=== PATIENT | male | born 1985 | race Caucasian/White ===

== ENCOUNTER 2017-06-20 03:23 | Inpatient (IN) | payer MEDICAID, OTHER ==
[2017-06-20 03:23] VITALS: BMI 28.1
[2017-06-20 04:38] LABS: RBC URINE < 1 /hpf (0-3); URINE BILIRUBIN NEGATIVE (NEGATIVE); URINE BLOOD NEGATIVE (NEGATIVE); URINE COLOR Yellow (YELLOW); URINE GLUCOSE (UA) NORMAL (Normal); URINE KETONE 2+ mg/dL (NEGATIVE); URINE LEUKOCYTE ESTERASE NEG Leu/uL (Negative); URINE PROTEIN NEGATIVE (NEGATIVE); URINE UROBILINOGEN NORMAL mg/dL (0.2-1.0); WBC URINE 1 /hpf (0-5)
[2017-06-20 04:40] LABS: MEAN PLATELET VOLUME 8.6 fL (7.2-11.7); WHITE BLOOD COUNT 9.3 K/uL (4.8-10.8)
[2017-06-20 04:45] LABS: CHLORIDE 98 mmol/L (98-107); SODIUM 134 mmol/L (132-148)
[2017-06-20 04:46] LABS: POTASSIUM 3.5 mmol/L (3.6-5.2)
[2017-06-20 04:48] LABS: ALB/GLOB RATIO 1.2 (1.0-2.1); ALKALINE PHOSPHATASE 68 U/L (38-126); ALT/SGPT 37 U/L (21-72); AST/SGOT 23 U/L (17-59); BILIRUBIN,TOTAL 1.8 mg/dL (0.2-1.3); BLOOD UREA NITROGEN 19 mg/dL (9-20); CALCIUM 8.7 mg/dl (8.6-10.4); CARBON DIOXIDE 26 mmol/L (22-30); GFR AFRICAN-AMERICAN > 60; GLUCOSE,RANDOM 77 mg/dL (75-110); TOTAL PROTEIN 8.4 g/dL (6.3-8.3)
[2017-06-20 04:49] LABS: ALCOHOL SERUM < 10 mg/dl (0-10); BASO % 0.2 % (0.0-2.0); EOS % 0.1 % (0.0-4.0); HEMATOCRIT 40.8 % (35.0-51.0); LYMPH # 1.6 K/uL (1.0-4.3); LYMPH % 17.2 % (20.0-40.0); MEAN CELL VOLUME 84.3 fL (80.0-94.0); MEAN CORPUSCULAR HEMOGLOBIN 28.6 pg (27.0-31.0); MEAN CORPUSCULAR HGB CONC 33.9 g/dL (33.0-37.0); MONO # 0.7 K/uL (0.0-0.8); MONO % 7.1 % (0.0-10.0); RED CELL DISTRIBUTION WIDTH 14.4 % (11.5-14.5)
--- NOTE | 2017-06-20 04:57 | C.PDOC ---
History Of Present Illness 31 y/o male with h/o of bipolar disorder presents to ER with c/o suicidal ideation- pt states he was thinking on overdosing on pills but did not take any pills. Pt reports being noncompliant to his psychiatric meds. Denies any medical c/o Time Seen by Provider: 06/20/17 03:41 Chief Complaint (Nursing): Psychiatric Evaluation History Per: Patient History/Exam Limitations: no limitations Current Symptoms Are (Timing): Still Present Suicide/Self Injury Attempted (Context): None Modifying Factor(s): Cocaine Associated Symptoms: Suicidal Plan Involuntary Hold By: None Recent travel outside of the [place]: No Past Medical History Vital Signs: Last Vital Signs Temp 97.9 F 06/20/17 03:35 Pulse 91 H 06/20/17 03:35 Resp 18 06/20/17 03:35 BP 144/84 06/20/17 03:35 Pulse Ox 99 06/20/17 03:35 - Medical History PMH: Bipolar Disorder, Depression Denies: Diabetes, Hepatitis, HIV, HTN, Seizures, Sexually Transmitted Disease Surgical History: No Surg Hx - [facility] DETOXIF[facility] SERVICES FOR SUBSTANCE ABUSE TREATMENT (07/25/16) Family History: States: Unknown Family Hx - Social History Hx Alcohol Use: Yes Hx Substance Use: Yes - Immunization History Hx Tetanus Toxoid Vaccination: No Hx Influenza Vaccination: No Hx Pneumococcal Vaccination: No Review Of Systems Except As Marked, All Systems Reviewed And Found Negative. Psych: Positive for: Suicidal ideation Physical Exam - Physical Exam Appears: Well, No Acute Distress Skin: Normal Color, No Other (lesions) Head: Atraumatic Eye(s): bilateral: Normal Inspection, EOMI Neck: Normal, Supple Cardiovascular: Rhythm Regular Respiratory: Normal Breath Sounds, No Wheezing Gastrointestinal/Abdominal: Normal Exam, Soft, No Tenderness Neurological/Psych: Oriented x3, Normal Speech, Normal Cognition Gait: Steady ED Course And Treatment O2 Sat by Pulse Oximetry: 99 Pulse Ox Interpretation: Normal Progress Note: Pt was evaluated by crisis counselor- Nusrat who discussed case with psych organizational development director Dr Diggs who will admit the pt Disposition - Disposition Disposition Time: 04:20 Condition: STABLE Forms: [facility] (Setswana) - Clinical Impression Clinical Impression: Bipolar disorder, Alcohol abuse, Cocaine abuse
[2017-06-20] MEDS ORDERED: Pneumococcal 23-Valent Vaccine IM ONE (05:56)
--- NOTE | 2017-06-20 06:01 | PCM.BM ---
<Beatriz Lange - Last Filed: 06/20/17 06:01> Treatment Plan Problems - Problems identified on initial assessmt Depression Date Initiated: 06/20/17 Time Initiated: 05:30 Assessment reference: NA Status: Active Suicidal Ideation Date Initiated: 06/20/17 Time Initiated: 05:30 Assessment reference: NA Status: Active Treatment assets and liabiliti Patient Assests: cooperative, self-reliant, ADL independent, negotiates basic needs, good interpersonal skills Patient Liabilities: financial problems, poor support system, substance abuse ( Cocaine) - Milieu Protocol Maintain good personal hygiene: daily Encourage regular showers, daily Remind patient to perform daily oral care Conduct patient checks and document Observation sheet: Q15 minutes Maintain personal safety: every shift Educate patient to report safety concerns to staff, every shift Monitor environment for contraband/sharps Medication safety: Monitor for expected outcome, potential side effects: every shift, Assess barriers to learning: every shift, Assess readiness for medication education: every shift <Mary Beth De Leon - Last Filed: 06/21/17 11:21> Family Contact Family involvement: Famliy/SO not involved - Goals for Treatment Patient goals for treatment: "I guess I'll go to rehab." Discharge/Continuing Care - Education Needs Education Needs: Patient Medication, Patient Coping Skills, Patient Placement options, Patient Community resources - Discharge Discharge Criteria: Tolerates medication w/o severe side effects, Free of Suicidal thoughts, No longer exhibiting s/s of withdrawal, Reduction of target symptoms Discharge to:: Substance Abuse Rehab - Treatment Team Participation Discussed with Family/SO: No Was Patient/Family/SO present at Treatment Team Meeting: Yes <Jim Diggs - Last Filed: 06/21/17 11:25> - Diagnosis (1) Major depress dis, severe Status: Acute Interventions: 06/21/17 11:24 * Assess/adjust medications daily and /or as needed * See patient on an individual basis 7x/week to assess level of depressive behaviors and stability * Discuss risks, benefits, side effects and alternatives of medications * (2) Cocaine abuse Status: Acute Interventions: 06/21/17 11:25 * Assess 7x/week regarding severity of withdrawal * Educate regarding risks, benefits, side effects and alternatives of medications * Use Motivational Interviewing for abstinence * Use CBT for relapse prevention * Medication management for withdrawal symptoms * Encourage medication assisted treatment *
--- NOTE | 2017-06-20 10:19 | PCM.PSYCH ---
Initial Psychiatric Evaluation - Initial Psychiatric Evaluation Type of Admission: Voluntary Legal Status: Capacity Chief Complaint (in patient's own words): I was feeling suicidal.' History of Present Illness and Precipitating Events: This is a 31 years old HM, who is currently unemployed. Patient has a long history of depression and came to the hospital with suicidal ideation. Patient reports a long history of abusing cocaine and drinking. Patient reports history of 1 inpatient psychiatric hospitalizations at [facility] 1 year ago. However he denies any follow-up with any psychiatrist. As per the ED note, patient presented to the ED patient saying, "My mind is not right;" I want to kill myself;" I've been using drugs;" I tried to kill myself 2days ago." Pt reports attempting suicide by od on "more than 30" tablets of Xanax, Clonazepam , and Clonidine on June 18, 2017. Pt "woke up throwing up" several hours after making the above suicide attempt, but he did not seek medical attention. As per Pt's medical record, Pt made a similar suicide attempt, on 07/25/16, by od on "100" unknown pills. Pt had been living with his mother until she threw him out sometime last night secondary to Pt stealing from her. Patient reports of increasingly depressed mood, at times feelings of hopelessness and helplessness, poor sleep and poor appetite. He also reports at times irritability, and agitation. Patient reports auditory hallucinations noncommand type. However he denies any visual hallucinations or any persecutory delusions . He reports using $100 worth cocaine yesterday but denies drinking or any other substance abuse. Medical history None reported Past Psychiatric History - Past Psychiatric History Previous Treatment History: Inpatient Pertinent Medical Hx (Current Medical&Sleep Prob, Allergies): Allergies Allergy/AdvReac Type Severity Reaction Status Date / Time No Known Allergies Allergy Verified 06/20/17 03:41 Escitalopram [Lexapro] 10 mg PO DAILY #30 tab 07/30/16 Fluticasone Propionate [Flonase] 1 spr FRANTZ BID #0 bottle 07/30/16 Gabapentin [Neurontin] 300 mg PO TID #90 cap 07/30/16 QUEtiapine [Seroquel] 100 mg PO HS #30 tab 07/30/16 Review of Systems - Review of Systems All systems: reviewed and no additional remarkable complaints except - Psychiatric Psychiatric: Anxiety, Depression, Irritability, Suicidal Ideation Mental Status Examination - Personal Presentation Personal Presentation: Looks stated age - Affect Affect: Constricted, Depressed - Motor Activity Motor Activity: Calm - Reliability in Providing Information Reliability in Providing Information: Good - Speech Speech: Organized - Mood Mood: Depressed, Anxious - Formal Thought Process Formal Thought Process: No Impairment - Obsessions/Compulsions Obsessions: No Compulsions: No - Cognitive Functions Orientation: Person, Place, Situation, Time Sensorium: Alert Attention/Concentration: Attentive Abstract Thinking: [place] Estimate of Intelligence: Below average Judgement: Imparied, as evidence by: Poor judgement, Imparied, as evidence by: Lack of insight into illness - Risk Risk: Suicidal, Diminished functioning - Strength & Assets Inventory Strength & Assets Inventory: Family support DSM 5 DX - DSM 5 DSM 5 Diagnosis: Major depressive disorder recurrent severe with psychotic features Cocaine use disorder severe - Recommended/Plan of Treatment Treatment Recommendations and Plan of Treatment: Major depressive disorder recurrent severe with psychotic features CBT Psychoeducation Supportive therapy and group therapy Lexapro 10 mg daily Neurontin 100 mg by mouth 3 times a day Seroquel 100 mg by mouth daily at bedtime Trazodone 50 mg by mouth daily at bedtime Cocaine use disorder severe CBT Psychoeducation Use [place] for abstinence - Smoking Cessation Smoking Cessation Initiated: No
[2017-06-20] MEDS: Fluticasone Nasal 50 mcg/Spray NAS SCH (17:42)
[2017-06-21] MEDS: Fluticasone Nasal 50 mcg/Spray NAS SCH ×2 (10:29→17:46)
--- NOTE | 2017-06-21 10:44 | PCM.PYCHPN ---
Psychiatric Progress Note - Psychiatric Progress Note Patient Chief Complaint: I was feeling suicidal.' Medication Change: Yes (increase seroquel, increase lexapro) Medical Record Reviewed: Yes Mental Status Examination - Cognitive Function Orientation: Person, Place, Situation, Time - Mood Mood: Depressed, Anxious - Affect Affect: Constricted, Depressed - Formal Thought Process Formal Thought Process: No Impairment - Homicidal Ideation Homicidal Ideation: No Goal/Treatment Plan - Goal/Treatment Plan Progress Toward Problem(s) and Goals/Treatment Plan: Major depressive disorder recurrent severe with psychotic features CBT Psychoeducation Supportive therapy and group therapy Lexapro 10 mg daily Neurontin 100 mg by mouth 3 times a day Seroquel 100 mg by mouth daily at bedtime Trazodone 50 mg by mouth daily at bedtime Cocaine use disorder severe CBT Psychoeducation Use [place] for abstinence
[2017-06-22] MEDS: Fluticasone Nasal 50 mcg/Spray NAS SCH ×2 (09:14→17:31)
--- NOTE | 2017-06-22 10:41 | PCM.PYCHPN ---
Psychiatric Progress Note - Psychiatric Progress Note Patient seen today, length of contact: 16 min Patient Chief Complaint: I was feeling better.' Problems Identified/Issues Discussed: Patient seen and evaluated, chart reviewed and discussed with the nurse. Patient reports improvement in his mood and denies any auditory or visual hallucinations. He still reports some anxiety but denies any feelings of hopelessness and helplessness. He is taking medication and denies any side effects. He needs more time for stabilization. Supportive therapy and psychoeducation were given. Medication Change: Yes (increase seroquel, increase lexapro) Medical Record Reviewed: Yes Mental Status Examination - Cognitive Function Orientation: Person, Place, Situation, Time Memory: Intact Attention: WNL Concentration: Poor Association: WNL Fund of Knowledge: Poor - Mood Mood: Depressed, Anxious - Affect Affect: Constricted - Speech Speech: Soft - Formal Thought Process Formal Thought Process: No Impairment - Suicidal Ideation Suicidal Ideation: No - Homicidal Ideation Homicidal Ideation: No Goal/Treatment Plan - Goal/Treatment Plan Need for Continued Stay: Severe depression anxiety, Severe functional impairment Progress Toward Problem(s) and Goals/Treatment Plan: Major depressive disorder recurrent severe with psychotic features CBT Psychoeducation Supportive therapy and group therapy Lexapro 20 mg daily Neurontin 100 mg by mouth 3 times a day Seroquel 100 mg by mouth daily at bedtime Trazodone 50 mg by mouth daily at bedtime Cocaine use disorder severe CBT Psychoeducation Use [place] for abstinence - Smoking Cessation Smoking Cessation Initiated: No
[2017-06-23 09:27] VITALS: BP 117/75; PULSE 71; RESP 16; TEMP 98.3; O2SAT 98
[2017-06-23] MEDS: Fluticasone Nasal 50 mcg/Spray NAS SCH (09:28)
[2017-06-23] MEDS ORDERED: Influenza Vaccine 60 mcg/0.5 mL SYR (4YR UP) IM ONE (10:00)
--- NOTE | 2017-06-23 12:01 | PCM.PYCHDC ---
Mental Status Examination - Mental Status Examination Orientation: Person, Place, Situation, Time Memory: Intact Mood: Neutral Affect: Constricted Speech: Soft Attention: WNL Concentration: WNL Association: WNL Fund of Knowledge: WNL Formal Thought Process: No Impairment Description of patient's judgement and insight: good, fair Psychotic Thoughts and Behaviors: denies any AVH Suicidal Ideation: No Current Homicidal Ideation?: No Discharge Summary - Discharge Note Reason for Hospitalization: This is a 31 years old HM, who is currently unemployed. Patient has a long history of depression and came to the hospital with suicidal ideation. Patient reports a long history of abusing cocaine and drinking. Patient reports history of 1 inpatient psychiatric hospitalizations at [facility] 1 year ago. However he denies any follow-up with any psychiatrist. As per the ED note, patient presented to the ED patient saying, "My mind is not right;" I want to kill myself;" I've been using drugs;" I tried to kill myself 2days ago." Pt reports attempting suicide by od on "more than 30" tablets of Xanax, Clonazepam , and Clonidine on June 18, 2017. Pt "woke up throwing up" several hours after making the above suicide attempt, but he did not seek medical attention. As per Pt's medical record, Pt made a similar suicide attempt, on 07/25/16, by od on "100" unknown pills. Pt had been living with his mother until she threw him out sometime last night secondary to Pt stealing from her. Patient reports of increasingly depressed mood, at times feelings of hopelessness and helplessness, poor sleep and poor appetite. He also reports at times irritability, and agitation. Patient reports auditory hallucinations noncommand type. However he denies any visual hallucinations or any persecutory delusions . He reports using $100 worth cocaine yesterday but denies drinking or any other substance abuse. Consultations:: List each consultation separately and include: 1. Reason for request. 2. Findings. 3. Follow-up Summary of Hospital Course include:: 1. Description of specific treatment plan utilized for patients during their course of treatmen. 2. Summarize the time- course for resolution of acute symptoms and/or regressed behaviors. 3. Describe issues identified and worked on during hospitalization. 4. Describe medication utilized. 5. Describe medical problems identified and treated. 6. Reassessment of suicide risk Summary of Hospital Course: During the course of his stay, patient (pt) started progressively improving and he no longer remained irritable, depressed, and suicidal. His mood and anxiety were improved and he started attending groups and meetings and started socializing. Patient denied any feelings of hopelessness, helplessness, and worthlessness, denied any problem with the sleep or appetite, denied suicidal ideation or homicidal ideation. Pt denied any auditory or visual hallucinations. Some changes were made in his current medications and patient was discharged on following medications. He tolerated these medications very well and denies any side effects. He was discharged to [facility]. - Diagnosis (1) Major depress dis, severe Status: Acute (2) Cocaine abuse Status: Acute - Final Diagnosis (DSM 5) Condition upon Discharge: STABLE DSM 5: Major depressive disorder recurrent severe with psychotic features Cocaine use disorder severe Disposition: HOME/ ROUTINE Follow-up Treatment Plan: Education: Pt was educated and counseled about the risks and benefits of taking and not taking medications. Pt was educated and counseled about the risks of drinking and abusing drugs. Pt was educated and counseled to go to the ER or call 911 if pt develop suicidal ideation or homicidal ideation, worsening of symptoms or severe side effects of the meds. Prescriptions/Medication Reconciliation: Escitalopram [Lexapro] 10 mg PO DAILY #30 tab Gabapentin [Neurontin] 300 mg PO BID #60 cap QUEtiapine [SEROquel] 200 mg PO HS #30 tab - Smoking Cessation Smoking Cessation Medication prescribed: No - Antipsychotic Medications Pt discharged on 2 or more routine antipsychotic medications: No
== END 2017-06-23 12:45 | disposition home or self-care (01) | DRG 430 ==
LOC: C.ER 03:23 → C.5E 04:37
PROVIDERS: ADMIT Psychiatry & Neurology Psychiatry; ATTEND Psychiatry & Neurology Psychiatry
PROC: HZ52ZZZ Individual Psychotherapy for Substance Abuse Treatment, Cognitive-Behavioral (ICD-10-PCS; principal; 2017-06-20)
PROC: GZHZZZZ Group Psychotherapy (ICD-10-PCS; 2017-06-20)
PROC: HZ59ZZZ Individual Psychotherapy for Substance Abuse Treatment, Supportive (ICD-10-PCS; 2017-06-20)
PROC: HZ56ZZZ Individual Psychotherapy for Substance Abuse Treatment, Psychoeducation (ICD-10-PCS; 2017-06-20)
DX: F33.3 Major depressive disorder, recurrent, severe with psychotic symptoms (principal); R45.851 Suicidal ideations; Z91.14 Patient's other noncompliance with medication regimen; F14.23 Cocaine dependence with withdrawal; F10.10 Alcohol abuse, uncomplicated; Y90.0 Blood alcohol level of less than 20 mg/100 ml